=== PATIENT | female | born 1965 | race Caucasian/White ===

== ENCOUNTER 2022-04-29 10:19 | Emergency (ER) | payer OTHER, SELFPAY ==
[2022-04-29 10:24] VITALS: BP 140/71; PULSE 80; RESP 18; TEMP 36.6; O2SAT 98; BMI 33.6
[2022-04-29] MEDS: KETOROLAC 30 MG/ML VIAL 15 MG IV (11:52)
[2022-04-29] MEDS: diazePAM 5 MG TABLET PO (11:53)
--- NOTE | 2022-04-29 13:40 | ED_ITS ---
HPI - Back Pain/Injury <JONO Gaines - Last Filed: 04/29/22 13:50> General Chief Complaint: Back Pain/Injury Stated Complaint: low back pain Time Seen by Provider: 04/29/22 11:39 Source: patient and EMS History of Present Illness HPI Narrative: 56-year-old female, nonsmoker with history L3-4 surgery, presents to the emergency room with right-sided lower back spasms since this morning. 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 Patient awoke this morning with such severe right-sided spasms that she was unable to walk. Patient was brought to the emergency department via EMS. Patient denies any symptoms of saddle anesthesia. Related Data Previous Rx's Medication Instructions Recorded acyclovir 400 mg tablet 400 mg PO TID ##45 12/10/12 triamcinolone acetonide 0.1 % 0 gm topical TID PRN ##60 06/29/13 topical cream cyclobenzaprine 10 mg tablet 10 mg PO TID PRN muscle spasm #10 04/29/22 tabs oxycodone-acetaminophen 5 mg-325 1 tab PO Q6H PRN pain #10 tabs 04/29/22 mg tablet (Percocet) Allergies Allergy/AdvReac Type Severity Reaction Status Date / Time NABUMETONE Allergy Unknown BLISTERS Uncoded 12/31/17 13:02 Review of Systems <JONO Gaines - Last Filed: 04/29/22 13:50> Review of Systems Narrative: Narrative: GENERAL: Denies chills, fatigue, fever, sweats. See HPI HEENT: Denies sinus pain, ear pain, sore throat, difficulty swallowing, dizziness. RESPIRATORY: Denies dyspnea, cough, wheezing, sputum. CARDIOVASCULAR: Denies chest pain, palpitations, edema. GASTROINTESTINAL: Denies nausea, vomiting, abdominal pain, diarrhea, constipation. : Denies dysuria, frequency, incontinence, hematuria, urinary retention, flank pain. Denies Loss of control of bowel or bladder. MSK: Denies weakness, joint pain, or bony pain. Endorses right-sided lower back spasms. SKIN: Denies rash, skin lesions, or pruritis. NEUROLOGIC: Denies weakness, dizziness, headache, numbness or tingling, confusi on. PSYCHIATRIC: No concerning psychosocial issues. Patient History <JONO Gaines - Last Filed: 04/29/22 13:50> Social History Smoking Status: Never smoker Smoking Status: Never smoker alcohol intake frequency: 0-2 drinks per day Substance Use Type: does not use Exam <JONO Gaines - Last Filed: 04/29/22 13:50> Narrative Exam Narrative: Exam Narrative: GENERAL: This is a well-nourished, well-developed patient, in no acute distress HEAD: Atraumatic. Normocephalic. EYES: Pupils equal round and reactive. Extraocular motions intact. No scleral icterus, injection or drainage. ENT: Nose without bleeding, purulent drainage. Throat without erythema, tonsillar hypertrophy or exudate. Airway patent. NECK: Trachea midline. No JVD or lymphadenopathy. Nontender. CARDIOVASCULAR: Regular rate and rhythm without murmurs, peripheral pulses intact, cap refill <2 sec. RESPIRATORY: Breath sounds equal and clear bilaterally. No wheezes, rales, or rhonchi. No cough. No increased respiratory effort. No accessory muscle use. GASTROINTESTINAL: Abdomen soft, non-tender, nondistended without guarding or rebound. No suprapubic pain. MSK: Moves all extremities. Limited range of motion of right leg due to pain and spasms, no clubbing or edema. Neurovascularly intact. NEURO: A&O x 3. SKIN: Warm, dry, no rashes or lesions noted. Initial Vital Signs Initial Vital Signs: Vital Signs Temperature 97.9 F 04/29/22 10:24 Pulse Rate 80 04/29/22 10:24 Respiratory Rate 18 04/29/22 10:24 Blood Pressure 140/71 04/29/22 10:24 Pulse Oximetry 98 04/29/22 10:24 Oxygen Delivery Method 04/29/22 10:24 Reviewed Back/Spine/Pelvis Other: BACK glassine machine tender but free of any obvious external abnormalities. Visible scar along L3-4 from previous surgery. There is no asymmetry, swelling, bruising or wound. There is no paraspinal tenderness or CVA tenderness. SI joints nontender. No pain over spinous processes. No symptoms of cauda equina such as saddle anesthesia. Sensation is grossly intact. ROM is limited due to pain and spasms. SLE is positive on right side. Reflexes 2-3 at patella and achilles bilaterally. Resistive strengths are within normal limits Gait is normal. Heel toe balance is intact <Kymberly Escalona DO - Last Filed: 05/03/22 08:26> Initial Vital Signs Initial Vital Signs: Vital Signs Temperature 97.9 F 04/29/22 10:24 Pulse Rate 80 04/29/22 10:24 Respiratory Rate 18 04/29/22 10:24 Blood Pressure 140/71 04/29/22 10:24 Pulse Oximetry 98 04/29/22 10:24 Oxygen Delivery Method 04/29/22 10:24 Course <JONO Gaines - Last Filed: 04/29/22 13:50> Orders Ordered: Discontinued Medications Diazepam (Diazepam 5 Mg Tablet) 5 mg PO NOW ONE Stop: 04/29/22 11:40 Last Admin: 04/29/22 11:53 Dose: 5 mg Documented By: ZAKIYA Ketorolac Tromethamine (Ketorolac 30 Mg/Ml Vial) 15 mg IV NOW ONE Stop: 04/29/22 11:40 Last Admin: 04/29/22 11:52 Dose: 15 mg Documented By: ZAKIYA Vital Signs Vital signs: Vital Signs - 8 hr 04/29/22 10:24 Temperature 97.9 F Pulse Rate 80 Respiratory Rate 18 Blood Pressure 140/71 Pulse Oximetry 98 Oxygen Delivery Method Room Air <Kymberly Escalona DO - Last Filed: 05/03/22 08:26> Orders Ordered: Discontinued Medications Diazepam (Diazepam 5 Mg Tablet) 5 mg PO NOW ONE Stop: 04/29/22 11:40 Last Admin: 04/29/22 11:53 Dose: 5 mg Documented By: ZAKIYA Ketorolac Tromethamine (Ketorolac 30 Mg/Ml Vial) 15 mg IV NOW ONE Stop: 04/29/22 11:40 Last Admin: 04/29/22 11:52 Dose: 15 mg Documented By: BS Vital Signs Vital signs: Vital Signs - 8 hr 04/29/22 10:24 Temperature 97.9 F Pulse Rate 80 Respiratory Rate 18 Blood Pressure 140/71 Pulse Oximetry 98 Oxygen Delivery Method Room Air MDM - Back Pain/Injury <JONO Gaines - Last Filed: 04/29/22 13:50> Differential Diagnosis Differential diagnosis: Likely strain of lumbar region MDM Narrative Medical decision making narrative: 56-year-old female with previous history of L3 for surgery, brought to the emergency department via EMS for right-sided back spasms. Pain and spasms was controlled with a Toradol injection and Valium tablet.Consideration included that injury was non-traumatic, patient is not a IV drug user, no fever, neurovascular intact, no weakness, no signs of epidural abscess or saddle anesthesia. Will send patient home with a prescription for opioids and muscle relaxers. Instructions to follow up with family doctor this week and consideration of physical therapy to increase mobility. Discussed return precautions and plan of care with patient who was agreeable with course of action. Discharge Plan Departure Patient Disposition: Home Clinical Impression: Strain of lumbar region Instructions: DI for Back Spasm, DI for Back Strain or Sprain Activity Restrictions/Additional Instructions: *You have been diagnosed with a lumbar strain. We have been able to get your spasms under control while in the ED and will prescribe you start pain medic ation and muscle relaxers to help you at home. For any worsening symptoms that include loss of control of bowel or bladder, numbness and tingling of legs, inability to stay and, etc. please return to the emergency department immediately. Otherwise, please follow-up with your family doctor for possible physical therapy referral to help with mobility. *What to do: *Please continue to take your regular medications as directed. [x ] New medication prescriptions sent to your pharmacy: [[facility]] [ ] New medication written as a paper prescription [ ] No new medications given *Please follow up with your primary care provider in 2-3 days, call for an appointment. Let them know you were seen in the Emergency Department and that we ask that you be seen in follow up. We will electronically transmit a record of today's note if your PCP is in our system *If you do not have a primary care provider please contact the [facility] Resource line at [phone]. They will ask some questions about your medical history and help get you set up with a doctor in the community. ? Return to ER if you should have any new, worsening or concerning symptoms, such as worsening pain, severe headache, confusion, chest pain, difficulty breathing, fever greater than 101 F, shaking chills, persistent vomiting to the point that you cannot drink fluids, or other new or worsening symptoms. Prescriptions: New oxycodone-acetaminophen [Percocet] 5-325 mg tablet 1 tab PO Q6H PRN (Reason: pain) Qty: 10 0RF cyclobenzaprine 10 mg tablet 10 mg PO TID PRN (Reason: muscle spasm) Qty: 10 0RF No Action acyclovir 400 MG tablet 400 mg PO TID Qty: 45 2RF triamcinolone acetonide 0.1 % cream 0 gm Topical TID PRNQty: 60 1RF Referrals: Colin Agarwal DO [Primary Care Provider] - Visit Report Forms: Patient Portal/API <Kymberly Escalona DO - Last Filed: 05/03/22 08:26> Cosign ED Attending Josse Attestation: I was immediately available in the department for consultation. Documentation has been reviewed.
[2022-04-29 13:43] VITALS: BP 134/77; PULSE 66; O2SAT 100
[2022-04-29 13:46] VITALS: BP 133/81; PULSE 75; O2SAT 99
[2022-04-29 14:05] VITALS: BP 133/81; PULSE 71; O2SAT 98
== END 2022-04-29 13:55 | disposition home or self-care (01) ==
PROVIDERS: Emergency Provider Registered Nurse; PCP Family Medicine
DX: S39.012A Strain of muscle, fascia and tendon of lower back, initial encounter (principal)
CPT/HCPCS: 96374; 99284; J1885

== ENCOUNTER → 2022-12-19 08:54 | Outpatient (CLI) | payer OTHER, SELFPAY ==
--- NOTE | 2022-12-19 | DI.MRI.S_ITS ---
PROCEDURE: MR LUMBAR SPINE WO CON INDICATIONS: Lumbago with sciatica, right side TECHNIQUE: Noncontrast sagittal T1 spin echo and T2 fast echo, sagittal STIR, and T2 fast spin echo through the lumbar spine. In cases with scoliosis, additional coronal T2 fast spin echo may be performed. COMPARISON: [facility], MR, L-SPINE WITHOUT CONTRAST, 04/08/2014, 7:16. FINDINGS: Image quality: Excellent. Alignment and Curvature: There is 5 mm anterolisthesis of L3 on L4. Bone Marrow: Marrow is of normal overall signal. No acute vertebral body compression fractures. Spinal Cord: Conus medullaris terminates at the L1 level. Visualized cord demonstrates normal signal and size. Paraspinous Soft Tissues: No paravertebral masses. T12-L1: Normal appearance. L1-L2: Loss of disc signal is seen. Mild diffuse disc bulge is seen without significant canal stenosis or neural foraminal narrowing. L2-L3: There is loss of disc signal. Broad-based disc bulge and bilateral facet arthrosis is seen with mild central canal stenosis, no significant neural foraminal narrowing. L3-L4: Loss of disc height and disc signal is seen. Broad-based disc bulge and right worse than left bilateral facet arthrosis is seen causing [id number] central canal stenosis and right worse than left bilateral neural foraminal narrowing. L4-L5: Loss of disc signal are and degenerative endplate changes are seen. Broad-based disc bulge and bilateral facet arthrosis is noted causing moderate central canal stenosis and left-sided neural foraminal narrowing. Mild left-sided neural foraminal narrowing is also seen. L5-S1: Loss of disc height and disc signal is seen. Broad-based disc bulge and bilateral facet arthrosis is noted. No significant central canal stenosis. Moderate left-sided neural foraminal narrowing is seen. IMPRESSION: 1. Grade 1 anterolisthesis of L3 on L4. No marrow edema. No acute compression fracture or spondylolisthesis. 2. Degenerative disc disease throughout lumbar spine causing various degrees of central canal stenosis and bilateral neural foraminal narrowing as described in detail above. Dictated by: Manuel Recio M.D. on 12/19/2022 at 12:21 Approved by: Manuel Recio M.D. on 12/19/2022 at 12:43
== END ==
PROVIDERS: PCP Family Medicine; Referring Provider Family Medicine; Visit Provider Family Medicine
DX: M51.16 Intervertebral disc disorders with radiculopathy, lumbar region (principal); M51.17 Intervertebral disc disorders with radiculopathy, lumbosacral region; M43.16 Spondylolisthesis, lumbar region
CPT/HCPCS: 72148

== ENCOUNTER → 2023-03-06 12:22 | Outpatient (CLI) | payer OTHER, SELFPAY ==
--- NOTE | 2023-03-06 12:24 | DI.RAD.S_ITS ---
PROCEDURE: XR LUMBAR SPINE MIN 4V INDICATIONS: low back pain TECHNIQUE: 5 views of the lumbar spine were acquired, including bilateral oblique views. COMPARISON: [facility], CR, XR LUMBAR SPINE WITH OLBIQUES PLUS FLEXION EXTENSION, 05/01/2021, 13:57. [facility], CR, L-SPINE 2-3 VIEWS, 01/17/2017, 11:31. [facility], CR, L-SPINE 2-3 VIEWS, 11/27/2012, 13:41. [facility], CR, L-SPINE 2-3 VIEWS, 11/09/2009, 13:07. FINDINGS: Bones: Rudimentary ribs are seen at T12. 5 nonrib-bearing vertebrae are present. 2 mm grade 1 anterolisthesis of L3 on L4 appears mildly increased when compared to the radiographs from 05/01/2021. 5 mm grade 1 anterolisthesis of L5 on S1 secondary to bilateral pars defects. No vertebral body compression fractures. No suspicious bony lesions. Multilevel disc space narrowing degenerative endplate changes are seen, which are worst and mildly progressed at the L3-4 level. There is mild multilevel facet hypertrophy. Soft tissues: Overlying bowel gas pattern is normal. No suspicious soft tissue calcifications. Oblique images: Bilateral spondylolysis of L5 with grade 1 anterolisthesis of L5 on S1. IMPRESSION: 1. Mild progressive degenerative changes and grade 1 anterolisthesis at L3-4. 2. Bilateral spondylolysis of L5 with grade 1 anterolisthesis of L5 on S1. Approved by: Bony Bush M.D. on 03/06/2023 at 15:20
== END ==
PROVIDERS: PCP Family Medicine; Referring Provider Anesthesiology; Visit Provider Anesthesiology
DX: M47.816 Spondylosis without myelopathy or radiculopathy, lumbar region (principal); M43.14 Spondylolisthesis, thoracic region; M43.15 Spondylolisthesis, thoracolumbar region; M54.50 Low back pain, unspecified
CPT/HCPCS: 72110

== ENCOUNTER 2023-04-09 09:47 | Outpatient (CLI) | payer OTHER, SELFPAY ==
[2023-04-09] VITALS (8 sets, daily range): BP systolic 137–169; BP diastolic 86–95; PULSE 78–86; RESP 14–20; TEMP 36.1; O2SAT 97–100
--- NOTE | 2023-04-09 09:50 | DI.RAD.S_ITS ---
PROCEDURE: PAIN L/S TRANSFORAMINAL INJECT INDICATIONS: RADICULOPATHY COMPARISON: None. FINDINGS: Fluoroscopic spot filming was performed to verify placement of spinal needles at the right L5 nerve root foramen, as labeled on the films. Fluoroscopic imaging utilized during transforaminal right L5-S1 epidural steroid injection. Dictated by: Rupert Kaufman M.D. on 04/09/2023 at 15:00 Approved by: Rupert Kaufman M.D. on 04/09/2023 at 15:01
[2023-04-09] MEDS: MIDAZOLAM 2 MG/2 ML VIAL IV (10:10)
[2023-04-09] MEDS: IOPAMIDOL 15 ML VIAL 3 ML INJ (10:13)
[2023-04-09] MEDS: DEXAMETHASONE 10 MG/ML VIAL INJ (10:13)
--- NOTE | 2023-04-09 10:21 | P.PCN_ITS ---
Date/Time/Diagnoses Date of procedure: 04/09/23 Time of procedure: 10:00 Procedure Notes Physician: Gideon Lujan Total Fluoroscopy time (seconds): 22 Total sedation minutes: 7 Procedure in detail & Post-procedure care: Right L5-S1 Transforaminal Epidural Steroid Injection Indications: Xochilt is presenting for treatment of lumbar radiculopathy with low back and leg pain. Preoperative diagnosis: Lumbar radiculopathy Postoperative diagnosis: Same Focused Examination: Ax3 Mood and affect are normal Vital Signs: VSS ASA: 2 Consent: Following review of allergies and potential side effects/complications, including, but not necessarily limited to, infection, allergic reaction, local tissue breakdown, stroke, temporary or permanent nerve injury, paralysis, and possible , the patient indicated that they understood and agreed to proceed.? An informed consent document was signed by the patient, witnessed by a nurse and placed in the patient's chart.? Additionally, other treatment options including medications and physical therapy were reviewed with the patient. All questions were answered. Site was then marked. Anesthesia: After review of previous anesthetic history and IV conscious sedation, the patient was deemed safe to proceed with today's procedure with IV conscious sedation. IV sedation was accomplished with midazolam 2 mg administered by the RN after order by Dr. Lujan. Sedation was titrated to patient comfort during the course of the procedure. Patient remained responsive to all verbal commands. Position: Prone Monitoring: NIBP, Pulse oximetry, 3 lead EKG Needle used: 22G 5 inch spinal needle Contrast: Isovue 300M Injectate: 10 mg Dexamethasone mixed with 1% lidocaine 1 ml and normal saline 1 mL Technique: The skin was prepped with chloraprep and draped in a sterile fashion. Time out was performed as per protocol. Oxygen applied via NC. Skin and subcutaneous structures of the needle entry site were infiltrated with 3mL of lidocaine 1%. Under fluoroscopic guidance, using an ipsilateral oblique view,?a 22 gauge 5 inch needle was advanced to the base of the L5?pedicle.? The needle was advanced to the superio-posterior aspect of the neural foramen under lateral view.? Oblique and AP views were rechecked. No paresthesias noted by the patient during needle placement. In AP view and utilizing real-time digital subtraction fluoroscopy, 2 ml contrast was slowly injected. Epidural spread was observed without evidence for intravascular nor intrathecal uptake. Contrast spread was seen craniocaudally. The above injectate was then administered, and the needle was subsequently withdrawn. Band-Aids applied to injection sites. EBL: less than 1 ml Complications: None Post Procedure: Patient was taken to the recovery and monitored. The patient was provided a Pain Log to continue to record the patient's response to the target- specific procedure prior to the patient's follow-up visit with the referring physician. Patient was stable upon discharge. Detailed post procedure instructions were provided. Patient was asked to call in the event of worsening pain, fever, weakness, numbness or bladder or bowel incontinence.
== END 2023-04-09 10:50 | disposition home or self-care (01) ==
LOC: RAD 09:49
PROVIDERS: PCP Family Medicine; Referring Provider Anesthesiology; Visit Provider Anesthesiology
DX: M54.16 Radiculopathy, lumbar region (principal)
CPT/HCPCS: 64483; J1100; J2250

== ENCOUNTER 2025-09-04 16:42 | Emergency (ER) | payer OTHER, SELFPAY ==
[2025-09-04 16:50] VITALS: BP 154/88; PULSE 92; RESP 18; TEMP 36.3; O2SAT 97; BMI 33.6
--- NOTE | 2025-09-04 16:56 | DI.RAD.S_ITS ---
PROCEDURE: XR CHEST 1V INDICATIONS: Chest Pain TECHNIQUE: One view of the chest was acquired. COMPARISON: None. FINDINGS: Surgical changes and devices: None. Lungs and pleura: Lungs are clear. No pleural effusions or pneumothorax. Mediastinum: Mediastinal contours appear normal. Heart size is normal. Bones and chest wall: No suspicious bony lesions. Overlying soft tissues appear unremarkable. IMPRESSION: No acute cardiopulmonary abnormality is seen. Dictated by: Cuate Franco M.D. on 09/04/2025 at 17:45 Approved by: Cuate Franco M.D. on 09/04/2025 at 17:45
--- NOTE | 2025-09-04 17:09 | EKG_ITS ---
[address] [address] Test Date: 2025-09-04 Pat Name: Xochilt Echavarria Department: [facility] Room: Gender: Female Clinical Documentation Manager: LILLY JESUS : 1965 Requested By: Order Number: [id number] Reading MD: Jamaal Lay MD Measurements Intervals [place] Rate: 92 P: 51 [place]: 122 QRS: 39 QRSD: 68 T: 9 QT: 342 QTc: 422 Interpretive Statements Normal sinus rhythm Electronically Signed On 09-04-2025 21:40:06 PST by Jamaal Lay MD
[2025-09-04 17:19] LABS: INR 1.0 (0.9-1.3); Prothrombin Time 11.7 SECONDS (9.4-12.5)
[2025-09-04 17:21] LABS: Add Manual Diff / Slide Review NO; Hematocrit 40.9 % (36-46); Hemoglobin 13.9 g/dL (12.0-16.0); Lymphocytes Absolute Auto 1400 /uL (1100-4500); Mean Corpuscular HGB Conc 33.9 % (30-36); Mean Corpuscular Hemoglobin 31.3 PG (26-34); Mean Corpuscular Volume 92.3 fL (80-100); Platelet Count 250 X10^3/uL (150-400)
[2025-09-04 17:22] LABS: PTT Partial Thromboplastin Tim 37 SECONDS (25.1-36.5)
[2025-09-04 17:23] LABS: Alanine Aminotransferase 12 IU/L (<35); Albumin 4.1 g/dL (3.5-5.0); Albumin Globulin Ratio 1.3 (1.0-2.8); Alkaline Phosphatase 82 U/L (38-126); Blood Urea Nitrogen 14 mg/dL (7-17); Calcium 9.6 mg/dL (8.4-10.2); Carbon Dioxide 25 mmol/L (22-32); Chloride 108 mmol/L (98-107); Creatine Kinase 67 U/L (30-135); Estimated Glomerular Filt Rate > 60 mL/min (>60); Globulin 3.1 g/dL (1.7-4.1); Glucose 151 mg/dL (70-99); HEMOLYSIS < 15 (0-50); Lipase 32 U/L (23-300); Magnesium 1.8 mg/dL (1.6-2.3); Potassium 4.0 mmol/L (3.4-5.1); Sodium 140 mmol/L (137-145); Total Protein 7.2 g/dL (6.3-8.2)
[2025-09-04 17:35] LABS: NT-proBNP (BNP-Adult 18+) 49 pg/mL (<125); Troponin I < 0.012 ng/mL (0.01-0.034)
--- NOTE | 2025-09-04 19:02 | PC.NURSE ---
Patient requesting IV removal, wants to leave. Signed [facility] paperwork.
== END 2025-09-04 19:03 | disposition left against medical advice (07) ==
PROVIDERS: Emergency Medicine; Emergency Provider Emergency Medicine; PCP Family Medicine
DX: R07.9 Chest pain, unspecified (principal)
CPT/HCPCS: 71045; 80053; 82550; 83690; 83735; 83880; 84484; 85025; 85610; 85730; 93005; 93010; 99281